=== PATIENT | male | born 2000 | race African-American/Black ===

== ENCOUNTER 2021-12-20 16:21 | Emergency (ER) | payer MEDICAID ==
[~2021-12-20] VITALS: Ht 182.9 cm; Wt 78.9 kg
[2021-12-20 16:50] VITALS: BP 127/66
[2021-12-20] MEDS ORDERED: KETOROLAC 30 MG/ML VIAL IM ONE (17:35)
--- NOTE | 2021-12-20 18:04 | NUR ---
pt returned from xray at this time
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
[2021-12-20] MEDS ORDERED: LID5T TP (19:08)
[2021-12-20] MEDS ORDERED: CYCL-711 PO (19:08)
[2021-12-20] MEDS ORDERED: NAPR-54 PO (19:08)
[2021-12-20 20:08] VITALS: BP 132/64
--- NOTE | 2021-12-20 20:08 | NUR ---
Patient discharged with v/s stable. Written and verbal after care instructions given and explained. Patient alert, oriented and verbalized understanding of instructions. Ambulatory with steady gait. All questions addressed prior to discharge. ID band removed. Patient advised to follow up with PMD. Rx of flexeril, lidoderm 5% patch, and naproxen given. Patient educated on indication of medication including possible reaction and side effects. Opportunity to ask questions provided and answered.
== END 2021-12-20 20:08 | disposition home or self-care (01) ==
LOC: MED 16:21
DX: M54.9 Dorsalgia, unspecified (principal); M25.511 Pain in right shoulder; M79.604 Pain in right leg; M54.2 Cervicalgia; Z79.899 Other long term (current) drug therapy; V89.2XXA Person injured in unspecified motor-vehicle accident, traffic, initial encounter; Y93.89 Activity, other specified; Y92.89 Other specified places as the place of occurrence of the external cause; Y99.8 Other external cause status
CPT/HCPCS: 72072; 73030; 73590; 96372; 99284; J1885